=== PATIENT | female | born 1955 | race Caucasian/White ===

== ENCOUNTER → 2018-01-08 | Outpatient (CLI) | payer BC, OTHER | END | disposition home or self-care (01) | LOC: C.RDSM 19:48 | PROVIDERS: ATTEND Physical Medicine & Rehabilitation Sports Medicine | DX: M67.471 Ganglion, right ankle and foot (principal); M79.642 Pain in left hand ==

== ENCOUNTER → 2018-01-27 | Outpatient (CLI) | payer BC | END | disposition home or self-care (01) | LOC: C.MAMM 07:51 | PROVIDERS: ATTEND Physical Medicine & Rehabilitation Sports Medicine | DX: Z78.0 Asymptomatic menopausal state (principal); M85.89 Other specified disorders of bone density and structure, multiple sites ==